=== PATIENT | female | born 1995 | race African-American/Black ===

== ENCOUNTER 2016-08-13 05:45 | Inpatient (IN) ==
[2016-08-13] MEDS ORDERED: FAMOTIDINE 20 MG/2 ML VIAL IV ONE (05:59)
[2016-08-13] MEDS ORDERED: CITRIC ACID/SODIUM CITRATE 30 ML UDCUP PO ONE (05:59)
[2016-08-13] MEDS: LACTATED RINGERS 1,000 ML IV SCH ×2 (06:30→22:16)
[2016-08-13 06:45] LABS: Basophils % 0.2 % (0.0-0.8); Eosinophils % 0.4 % (0.00-10.9); Hematocrit 31.6 VOL% (35.7-47.0); Immature Granulocytes % 0.4 %; Immature Granulocytes Absolute 0.04 #; Lymphocytes % 21.8 % (21.3-54.2); Mean Corpuscular HGB Conc 28.5 GM/DL (32-36); Mean Corpuscular Hemoglobin 18 PG (27-34); Mean Corpuscular Volume 62.3 FL (87-102); Monocytes # 0.4 10*3/uL (0.11-0.8); Monocytes % 4.2 % (1.7-12.7); Neutrophils # 6.6 10*3/uL (1.4-7.4); Platelet Count 374 T/CUMM (130-400); Red Blood Count 5.07 MC/CUMM (3.8-5.5); Red Cell Distribution Width 19.5 % (9.3-17.3)
[2016-08-13 06:54] LABS: INR 0.9; PT Patient Result 9.4 SECS; Partial Thromboplastin Time 31.7 SECS (0-40)
[2016-08-13] MEDS ORDERED: ceFAZolin 2,000 MG in PREMIX 1 EACH IV ONE (07:12)
[2016-08-13 07:15] LABS: Alanine Aminotransferase 77 U/L (13-56); Albumin 2.3 G/DL (3.4-5.0); Alkaline Phosphatase 323 U/L (45-117); Aspartate Amino Transferase 71 U/L (0-37); Bilirubin,Total < 0.39 MG/DL (0.2-1.0); Blood Urea Nitrogen 13 MG/DL (7-18); Calcium 8.4 MG/DL (8.5-10.1); Glucose 67 MG/DL (74-106); Osmolality,Calculated 272.7 MOS/KG (273-304); Potassium 3.8 MMOL/L (3.5-5.1); Sodium 138 MMOL/L (136-145); Total Protein 7.7 G/DL (6.4-8.3)
[2016-08-13 07:18] LABS: Hypochromasia 1+; Microcytosis 2+
[2016-08-13 07:19] LABS: Ovalocytes Slight; Platelet Estimate Normal
[2016-08-13] MEDS ORDERED: OXYTOCIN/LR 20 UNIT/1,000 ML BAG IV ONE ×2 (07:23→09:07)
[2016-08-13] MEDS ORDERED: ONDANSETRON 4 MG/2 ML VIAL ONE (07:45)
[2016-08-13] MEDS ORDERED: ACETAMINOPHEN 325 MG TABLET PO PRN (09:07)
--- NOTE | 2016-08-13 09:09 | Operative Note ---
Date of procedure: 08/13/16 Procedure Preformed: Following informed consent patient taken to the operating room where spinal anesthesia was administered without difficulty. She is prepped and draped in usual fashion placed in dorsal supine position with a leftward tilt. A Pfannenstiel skin incision made with scalpel and carried through to the underlying layer fascia with Bovie. The fascia with incision was excised midlines to lateral with Hobson scissors. The inferior and superior aspects of the fascial incision were grasped with Weld clamps, elevated and the rectus muscles dissected off bluntly. The rectus muscles were then midline and the peritoneum identified and entered with Metzenbaum scissors. The cyst extends purely inferiorly with good visualization of the bladder. Bladder blade was then reinserted and the uterus incised in transverse fashion with scalpel. It was head was atraumatically. The nose mouth bulb suctioned. Cord clamped cut and the handed off to waiting nurses. Cord blood was sent. The placenta was then removed manually and the uterus cleared all clots and debris. The uterine incision with #1 Vicryl in a running locked fashion. A second layer same suture was used to obtain hemostasis. The gutters and cleared of all clots and debris and once again hemostasis will be satisfactory. Therefore all instruments from the abdomen. The fascia was repaired with [0] Vicryl in a running fashion. Skin was closed with yohannes. A preventions wound VAC was applied due to patient's history of hidradenitis of vertebral with draining track sites adjacent to the incision site. At the end of the procedure all sponge lap needle counts correct 2. Baby and mother in stable condition. Surgeon / Physician: Sorin Aiken Post-op diagnosis: same Findings: Liveborn female infant Specimens: none sent Estimated blood loss: other (350 mL) Condition: stable Anesthesia: spinal Disposition: floor
--- NOTE | 2016-08-13 09:11 | OB/GYN History & Physical ---
History of Present Illness Chief complaint: Hypertension in History of present illness: Ms. Mcconnell is a 21 year old female Primigravida at 36 weeks gestation with history of gestational hypertension and hidradenitis suppurativa who was admitted for primary section. Patient 's blood pressures have been controlled via p.o. Procardia, however she was beginning to break through with once again elevated blood pressures that prompted the need for delivery once she reached 36 weeks gestation. Home Medications Medication Instructions Recorded Confirmed Type Ferrous Sulfate 325 mg PO TID MDD 650 MG 11/03/14 08/08/16 History Multivitamin () [ 1 tablet PO DAILY MDD ONE TAB 05/22/16 History Vitamin] Butalbital/Acet/Caff 50-325-40 1 tablet PO DIRECTED MDD 2 TABS 08/07/1608/08 History [Fioricet 50-325-40 mg Tablet] NIFEdipine CAP [Procardia] 10 mg PO Q4HR MDD 60 MG 08/08/16 08/08/16 History Allergies Allergy/AdvReac Type Severity Reaction Status Date / Time sulfamethoxazole Allergy RASH Verified 03/07/15 11:10 [From Bactrim] trimethoprim [From Bactrim] Allergy RASH Verified 03/07/15 11:10 12 point system: reviewed and no additional remarkable complaints except as stated Medical,Surgical,& Family Hx - Medical History Psychological: History of: Depression HEENT: History of: 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; wears Rx glasses) Endocrine: No history of: Diabetes Mellitus (IDDM) Rheumatology: No history of;: Psoriasis, Sjogrens, Systemic Lupus Erythematosus Genitourinary: History of: Recurring Urinary Tract Infections (accompanies abcesses) Musculoskeletal: History of: Musculoskeletal Problems (Left Arm DVT June 2015) No history of: Amputation Hematology: History of: Anemia (iron deficiency, chronic wounds, thalassemia), Clotting Problems (left arm DVT (June 2015)) No history of: Blood Transfusion Reaction Other: History of: MRSA (vaginal abscesses), Skin Problems (chronic abscesses; dx hidradenitis suppurativa), Miscellaneous Medical Problems (hidradenitis suppurativa) No history of: Anesthesia Reactions, Anaphylaxis, Cancer, Eczema, HIV, Malignant Hyperthermia - Surgical History Thoracic Surgeries: Patient denies;: Organ Transplant HEENT Surgeries: Patient denies: Eye Surgery, Tonsilectomy & Adenoidectomy Abdominal Surgeries: Patient denies: Abdominal Surgery Reproductive Surgeries: Surgical HX of;: Genitourinary Surgery (debridement to suprapubic area) Patient denies;: Gynecologic Surgery - Family History Family History: Reports;: Family Diabetes (Grandfather), Family Heart Disease ( Aunt), Family Hypertension (Aunt), Family Stroke (Grandfather) Denies;: Family Anesthesia Reaction, Family Cancer, Family Psychiatric Problems - Social History Smoking Status: Never smoker Frequency of Alcohol Use: None Type of Drug Use: None 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: Vital Signs Temp Pulse Resp BP 08/13/16 06:40 98.1 F 85 18 140/95 General appearance: no acute distress - Head Head exam: Present: normocephalic - ENT ENT exam: Present: normal exam - Neck Neck exam: Present: normal inspection - Respiratory Respiratory exam: Present: clear to auscultation bilaterally - Cardiovascular Cardiovascular exam: Present: regular rate and rhythm - GI/Abdominal GI/Abdominal exam: Present: normal bowel sounds, soft - Extremities Exam Extremities exam: Present: normal inspection - Back Exam Back exam: Present: normal inspection - Neurological Exam Neurological exam: Present: alert, oriented X3 - Psychiatric Psychiatric exam: Present: normal affect, normal mood - Skin Skin exam: Present: normal color, warm, other (Hidradenitis suppurativa) Assessment and Plan (1) 36 weeks gestation of Status: Acute Current Visit: Yes (2) Gestational hypertension Status: Acute Assessment and plan: Patient admitted for primary section. Risks and benefits and alternatives to procedure were reviewed. Current Visit: Yes (3) Hidradenitis Status: Acute Current Visit: Yes Results - Labs CBC & BMP: 08/13/16 06:33 08/13/16 06:33 Quality Measures - VTE Contraindication to Pharmacological VTE Prophylaxis: High Risk of Bleeding
--- NOTE | 2016-08-13 09:13 | Discharge Summary ---
Hospital Course - Hospital Course Hospital Course: This is a 21-year-old primigravida admitted at 36 weeks gestation for section secondary to gestational hypertension. Patient with chronic hidradenitis of vertebral with significant fistula tracts and drainage from the genital area prompting for section versus vaginal delivery. Hospital course was unremarkable postoperative day #3 she was ready for discharge. Patient still has a disposable wound VAC in place that will be removed later this week in the office. Diagnosis - Discharge Diagnosis (1) 36 weeks gestation of Status: Acute (2) Gestational hypertension Status: Acute (3) Hidradenitis Status: Acute Specialty Discharge - Follow Up or Referrals Follow up with: Sorin Aiken MD [Primary Care Provider] - 08/23/16 9:00 am (Call 's office Tuesday and schedule a 1 week follow up appointment) Discharge Plan - Discharge Data Disposition: Disch To Home/Self Care Condition at Discharge: Stable Discharge Diet: advance to your usual diet Activity: no lifting Hygiene: may shower Weight Bearing at Discharge: weight bear as tolerated Driving: not until seen by doctor Contact your physician if you experience:: fever over 101, Difficulty voiding, Redness or swelling, Nausea/Vomiting, Shortness of breath, Bleeding, pain uncontrolled by pain medications - Discharge Medications New HYDROcodone/ACETAMIN 5-325 [Mather 5-325] 2 tablet PO Q6H PRN #60 tablet PRN Reason: Pain Severe (8-10) Labetalol Tab [Trandate Tab] 200 mg PO BID #60 tablet No Action Ferrous Sulfate 325 mg PO TID MDD 650 MG Multivitamin () [ Vitamin] 1 tablet PO DAILY MDD ONE TAB Butalbital/Acet/Caff 50-325-40 [Fioricet 50-325-40 mg Tablet] 1 tablet PO DIRECTED MDD 2 TABS NIFEdipine CAP [Procardia] 10 mg PO Q4HR MDD 60 MG - Follow Up or Referral Follow Up: Sorin Aiken MD [Primary Care Provider] - 1 Week (Call 's office Tuesday and schedule a 1 week follow up appointment) - Forms/Instructions Instructions: Section (DC), Depression (GEN), Acute Wound Care (DC), Surgical Site Infections (GEN) Exam - Constitutional Vitals: Period Temp Pulse Resp BP Sys/Oneil Pulse Ox Last 24 Hr 98.1 F 85 18 140/95 General appearance: no acute distress - Head Head exam: Present: normocephalic - ENT ENT exam: Present: normal exam - Neck Neck exam: Present: normal inspection - Respiratory Respiratory exam: Present: clear to auscultation bilaterally - Cardiovascular Cardiovascular exam: Present: regular rate and rhythm - GI/Abdominal GI/Abdominal exam: Present: normal bowel sounds, soft, other (Incision clean dry and intact. Wound VAC in place) - Extremities Exam Extremities exam: Present: normal inspection - Back Exam Back exam: Present: normal inspection - Neurological Exam Neurological exam: Present: alert, oriented X3 - Psychiatric Psychiatric exam: Present: normal affect, normal mood - Skin Skin exam: Present: normal color, warm, other (Hidradenitis suppurativa to the genital region) Discharge Results Procedures and tests throughout hospitalization: Pending Orders 08/13/16 06:00 Urinalysis Routine Labs on day of discharge: Labs from last 24 hours 08/13/16 08/13/16 08/13/16 06:33 06:33 06:33 WBC RBC Hgb Hct MCV MCH MCHC RDW Plt Count Neut % (Auto) Lymph % (Auto) [place] % (Auto) Eos % (Auto) Baso % (Auto) Neut # (Auto) Lymph # (Auto) [place] # (Auto) Eos # (Auto) Baso # (Auto) Immature Gran % Nucleated RBC % Immature Gran # Nucleated RBCs # Platelet Estimate Hypochromasia Microcytosis Ovalocytes Morphology Comment INR PT Patient/Control Mix Fibrinogen 881 H Circ Anticoag PTT Sodium Potassium Chloride Carbon Dioxide Anion Gap BUN Creatinine GFR Calculation BUN/Creatinine Ratio Glucose Calculated Osmolality Uric Acid 7.2 H Calcium Total Bilirubin AST ALT Alkaline Phosphatase Total Protein Albumin Globulin Albumin/Globulin Ratio Blood Type O POSITIVE Antibody Screen Negative 08/13/16 08/13/16 08/13/16 06:33 06:33 06:33 WBC 9.0 RBC 5.07 Hgb 9.0 L Hct 31.6 L MCV 62.3 L MCH 18 L MCHC 28.5 L RDW 19.5 H Plt Count 374 Neut % (Auto) 73.0 Lymph % (Auto) 21.8 [place] % (Auto) 4.2 Eos % (Auto) 0.4 Baso % (Auto) 0.2 Neut # (Auto) 6.6 Lymph # (Auto) 2.0 [place] # (Auto) 0.4 Eos # (Auto) 0.0 Baso # (Auto) 0.0 Immature Gran % 0.4 Nucleated RBC % 0.0 Immature Gran # 0.04 Nucleated RBCs # 0.00 Platelet Estimate Normal Hypochromasia 1+ Microcytosis 2+ Ovalocytes Slight Morphology Comment INR 0.9 PT Patient/Control Mix 9.4 Fibrinogen Circ Anticoag PTT 31.7 Sodium 138 Potassium 3.8 Chloride 109 H Carbon Dioxide 16 L Anion Gap 16.8 H BUN 13 Creatinine 0.70 GFR Calculation 158 BUN/Creatinine Ratio 18.00 Glucose 67 L Calculated Osmolality 272.7 L Uric Acid Calcium 8.4 L Total Bilirubin < 0.39 AST 71 H ALT 77 H Alkaline Phosphatase 323 H Total Protein 7.7 Albumin 2.3 L Globulin 5.4 H Albumin/Globulin Ratio 0.4 L Blood Type Antibody Screen DS: Provider Date of admission: 08/13/16 05:59 Primary care physician: Sorin Aiken MD Attending physician on admission: Sorin Aiken MD Consults: 08/13/16 06:00 Consult to Anesthesiology [CONS] Routine Consulting Provider: Reason for Anesthesiology: Pre-op Clearance 08/13/16 06:47 Consult to Dietitian [CONS] Routine Reason for Dietitian: Diet Recommendations 08/13/16 09:07 Consult to Pathology Collector [CONS] Routine Consult Pathology Collector: Breast Feeding Discharging clinician: Sorin Aiken MD
[2016-08-13] MEDS ORDERED: MIDAZOLAM 2 MG/2 ML VIAL ONE (09:22)
[2016-08-13] MEDS ORDERED: fentaNYL 100 MCG/2 ML VIAL ONE (09:22)
[2016-08-13] MEDS ORDERED: MORPHINE 10 MG/10 ML VIAL ONE (09:23)
[2016-08-13] MEDS ORDERED: LACTATED RINGERS 1,000 ML IV SCH (09:30)
[2016-08-13 09:49] LABS: Apearance,Urine CLEAR (Clear); Bilirubin,Urine Negative (Negative); Blood, Urine Small mg/dL (Negative); Glucose,Urine (UA) Negative (Negative); Ketones,Urine Negative (Negative); Nitrite,Urine Negative (Negative); Protein,Urine Negative; RBC,Urine 1 /HPF (0-4); Squamous Epithelial Cell,Urine Occasional /HPF (0-10); Urine Color Yellow (Yellow); Urine Specific Gravity 1.005 (1.001-1.035); Urine Urobilinogen < 2.0 EU/DL (0.2-1.0); WBC,Urine 1 /HPF (0-6)
[2016-08-13] MEDS ORDERED: RHO(D) IMMUNE GLOBULIN 300 MCG SYRINGE IM ONE (10:00)
[2016-08-13] MEDS ORDERED: diphenhydrAMINE 50 MG/1 ML VIAL IV PRN (10:19)
[2016-08-13] MEDS ORDERED: hydrOXYzine HCL 25 MG/1 ML VIAL IM PRN (10:19)
[2016-08-13] MEDS: ONDANSETRON 4 MG/2 ML VIAL IV PRN ×3 (10:40→21:23)
[2016-08-13] MEDS: HYDROmorphone 2 MG/1 ML VIAL IV PRN ×3 (10:40→16:45)
--- NOTE | 2016-08-13 10:46 | Anesthesia Post-Op ---
Anesthesia Post OP - Post Ansesthetic Evaluation Patient seen in post op: Yes Resp: within normal limits CV: within normal limits Mental: within normal limits Temp: within normal limits [id number]: within normal limits Nausea and Vomiting: within normal limits Pain: within normal limits
[2016-08-13 16:13] LABS: Basophils % 0.3 % (0.0-0.8); Eosinophils # 0.1 10*3/uL (0.0-0.87); Eosinophils % 0.5 % (0.00-10.9); Hematocrit 26.5 VOL% (35.7-47.0); Hemoglobin 7.6 GM/DL (12.0-16.0); Immature Granulocytes % 0.4 %; Immature Granulocytes Absolute 0.04 #; Lymphocytes # 1.7 10*3/uL (1.4-4.0); Lymphocytes % 15.5 % (21.3-54.2); Mean Corpuscular HGB Conc 28.7 GM/DL (32-36); Mean Corpuscular Hemoglobin 18 PG (27-34); Mean Corpuscular Volume 62.4 FL (87-102); Mean Platelet Volume 11.2 FL (9.6-12.0); Monocytes # 0.5 10*3/uL (0.11-0.8); Monocytes % 4.5 % (1.7-12.7); Neutrophils # 8.7 10*3/uL (1.4-7.4); Neutrophils % 78.8 % (38.7-73.9); Platelet Count 273 T/CUMM (130-400); Red Blood Count 4.25 MC/CUMM (3.8-5.5)
[2016-08-13 20:18] LABS: Platelet Estimate Normal
[2016-08-13 20:19] LABS: Hypochromasia 2+; Microcytosis 3+; Poikilocytosis 1+; Tear Drop Cells Few
[2016-08-13 20:20] LABS: Burr Cells Few
[2016-08-13] MEDS: DOCUSATE SODIUM 100 MG CAPSULE PO SCH (21:02)
[2016-08-13] MEDS: IBUPROFEN 800 MG TABLET PO PRN (21:18)
[2016-08-14] MEDS: IBUPROFEN 800 MG TABLET PO PRN ×2 (05:13→17:59)
[2016-08-14 05:25] LABS: Basophils % 0.2 % (0.0-0.8); Eosinophils # 0.1 10*3/uL (0.0-0.87); Eosinophils % 1.3 % (0.00-10.9); Hematocrit 23.8 VOL% (35.7-47.0); Hemoglobin 6.7 GM/DL (12.0-16.0); Immature Granulocytes % 0.5 %; Immature Granulocytes Absolute 0.04 #; Lymphocytes # 1.2 10*3/uL (1.4-4.0); Lymphocytes % 14.7 % (21.3-54.2); Mean Corpuscular HGB Conc 28.2 GM/DL (32-36); Mean Corpuscular Hemoglobin 17 PG (27-34); Mean Corpuscular Volume 61.7 FL (87-102); Mean Platelet Volume 11.2 FL (9.6-12.0); Monocytes # 0.5 10*3/uL (0.11-0.8); Monocytes % 5.4 % (1.7-12.7); Neutrophils # 6.5 10*3/uL (1.4-7.4); Neutrophils % 77.9 % (38.7-73.9); Platelet Count 254 T/CUMM (130-400); Red Blood Count 3.86 MC/CUMM (3.8-5.5); Red Cell Distribution Width 18.8 % (9.3-17.3); White Blood Count 8.3 T/CUMM (4-12)
[2016-08-14] MEDS ORDERED: SODIUM CHLORIDE 0.9% 250 ML IV PRN (07:30)
[2016-08-14 08:04] LABS: Hypochromasia 2+
[2016-08-14 08:05] LABS: Giant Platelets Few; Microcytosis 1+
[2016-08-14] MEDS: MULTIVITAMIN (PRENATAL) TABLET PO SCH (08:23)
[2016-08-14] MEDS: DOCUSATE SODIUM 100 MG CAPSULE PO SCH ×2 (08:23→20:55)
[2016-08-14] MEDS: SIMETHICONE CHEW 80 MG TABLET PO PRN ×3 (08:24→20:55)
[2016-08-14] MEDS: MAGNESIUM HYDROXIDE SUSP 30 ML UDCUP PO PRN ×2 (08:24→20:55)
--- NOTE | 2016-08-14 12:19 | OB/GYN Progress Note ---
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 She has a significant hx of hidradenitis suppurativa with draining tract sites near incision site so wound vac was placed to aid healing. Her H/H had dropped somewhat after delivery so 2 units pRBCs given (instead of observation and medical management) to hopefully encourage better healing of her wound. Pt with discomfort as expected. She is hemodynamically stable. Exam INSPECTOR OPEN DIE - Constitutional Vitals: Vital Signs Temp Pulse Pulse Resp BP BP Pulse Ox 08/14/16 12:05 97.9 F 81 18 98 08/14/16 10:42 98.2 F 78 20 126/70 99 08/14/16 10:37 98.2 F 80 20 129/76 08/14/16 10:29 98.1 F 79 20 157/74 97 08/14/16 10:23 98.2 F 82 20 154/52 96 08/14/16 10:20 98.2 F 82 20 154/82 96 08/14/16 09:41 97.8 F 80 20 150/84 98 08/14/16 08:47 20 08/14/16 08:41 98.4 F 87 20 158/81 97 08/14/16 08:11 97.8 F 72 20 169/89 08/14/16 08:06 97.5 F L 72 20 169/77 08/14/16 08:01 97.6 F 79 20 134/74 99 08/14/16 08:00 20 08/14/16 07:45 97.2 F L 89 20 109/65 99 08/14/16 07:09 97.2 F L 65 18 135/80 08/14/16 03:55 97.5 F L 77 18 147/76 08/14/16 01:48 18 08/14/16 00:00 97.6 F 70 18 137/69 08/13/16 20:48 98.1 F 80 18 115/68 08/13/16 18:00 18 08/13/16 16:00 18 08/13/16 15:15 75 20 129/85 08/13/16 14:15 75 20 145/74 08/13/16 14:00 18 08/13/16 13:15 72 20 154/83 08/13/16 12:45 72 20 154/83 Pulse Ox 08/14/16 12:05 08/14/16 10:42 08/14/16 10:37 08/14/16 10:29 08/14/16 10:23 08/14/16 10:20 08/14/16 09:41 08/14/16 08:47 08/14/16 08:41 08/14/16 08:11 08/14/16 08:06 08/14/16 08:01 08/14/16 08:00 08/14/16 07:45 08/14/16 07:09 97 08/14/16 03:55 97 08/14/16 01:48 08/14/16 00:00 97 08/13/16 20:48 97 08/13/16 18:00 08/13/16 16:00 08/13/16 15:15 99 08/13/16 14:15 99 08/13/16 14:00 08/13/16 13:15 99 08/13/16 12:45 99 General appearance: normal weight, no acute distress - Head Head exam: Present: normal inspection, normocephalic - Eye Eye exam: Present: EOMI - Respiratory Respiratory exam: Present: clear to auscultation bilaterally - Cardiovascular Cardiovascular exam: Present: regular rate and rhythm - GI/Abdominal GI/Abdominal exam: Present: soft (wound vac in place. ) - Extremities Exam Extremities exam: Present: normal inspection - Neurological Exam Neurological exam: Present: alert, oriented X3 - Psychiatric Psychiatric exam: Present: normal affect, normal mood - Skin Skin exam: Present: normal color, warm Results - Labs CBC & BMP: 08/14/16 04:32 08/13/16 06:33 Lab Results: I have reviewed the past 24 hour labs
[2016-08-14] MEDS: oxyCODONE/ACETAMINOPHEN 5-325 MG TABLET PO PRN ×2 (15:00→20:55)
[2016-08-14] MEDS: ENOXAPARIN 40 MG/0.4 ML SYRINGE SUBCUT SCH (17:38)
[2016-08-14] MEDS ORDERED: WITCH HAZEL PADS 100/JAR TOP PRN (18:35)
[2016-08-14] MEDS ORDERED: HYDROCORTISONE 2.5% RECTAL CREAM 30 GM TUBE TOP PRN (18:36)
[2016-08-15] MEDS: oxyCODONE/ACETAMINOPHEN 5-325 MG TABLET PO PRN ×6 (01:00→21:02)
[2016-08-15] MEDS: IBUPROFEN 800 MG TABLET PO PRN (02:07)
[2016-08-15 05:24] LABS: Basophils % 0.2 % (0.0-0.8); Eosinophils # 0.2 10*3/uL (0.0-0.87); Eosinophils % 1.5 % (0.00-10.9); Hematocrit 29.5 VOL% (35.7-47.0); Immature Granulocytes % 0.4 %; Immature Granulocytes Absolute 0.04 #; Lymphocytes % 9.1 % (21.3-54.2); Mean Corpuscular HGB Conc 30.5 GM/DL (32-36); Mean Corpuscular Hemoglobin 20 PG (27-34); Mean Corpuscular Volume 65.3 FL (87-102); Monocytes # 0.5 10*3/uL (0.11-0.8); Monocytes % 4.5 % (1.7-12.7); Neutrophils # 9.1 10*3/uL (1.4-7.4); Neutrophils % 84.3 % (38.7-73.9); Platelet Count 266 T/CUMM (130-400); Red Blood Count 4.52 MC/CUMM (3.8-5.5); Red Cell Distribution Width 22.9 % (9.3-17.3); White Blood Count 10.8 T/CUMM (4-12)
[2016-08-15 07:41] LABS: Hypochromasia 2+; Microcytosis 1+; Platelet Estimate Adequate; Target Cells Slight
[2016-08-15] MEDS: FERROUS SULFATE 325 MG TABLET PO SCH ×2 (08:22→20:22)
[2016-08-15] MEDS: DOCUSATE SODIUM 100 MG CAPSULE PO SCH ×2 (08:22→20:23)
[2016-08-15] MEDS: LABETALOL 200 MG TABLET PO SCH ×2 (08:28→20:23)
[2016-08-15] MEDS: MULTIVITAMIN (PRENATAL) TABLET PO SCH (08:28)
[2016-08-15] MEDS: MAGNESIUM HYDROXIDE SUSP 30 ML UDCUP PO PRN (08:28)
[2016-08-15] MEDS: SIMETHICONE CHEW 80 MG TABLET PO PRN (08:29)
--- NOTE | 2016-08-15 11:57 | OB/GYN Progress Note ---
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 Now s/p transfusion of 2 units pRBCs, Labetolol 200mg bid started this morning with elevated BPs. Complains of gas pains but has had a BM. Wound vac functioning well. 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 - Constitutional Vitals: Vital Signs Temp Pulse Pulse Resp BP Pulse Ox Pulse Ox 08/15/16 11:51 97.7 F 78 18 156/77 98 08/15/16 10:00 20 08/15/16 07:55 997.6 F H 69 18 179/90 99 08/15/16 07:50 18 08/15/16 04:00 97.4 F L 76 18 149/79 100 08/14/16 23:55 97.7 F 89 20 139/94 100 08/14/16 19:45 97.6 F 79 20 154/84 97 08/14/16 16:38 18 08/14/16 16:00 98.4 F 77 18 155/74 97 08/14/16 14:00 18 08/14/16 12:12 97.8 F 77 20 98 08/14/16 12:05 97.9 F 81 18 98 08/14/16 12:00 97.9 F 81 18 160/76 98 General appearance: normal weight, no acute distress - Head Head exam: Present: normal inspection, normocephalic - Eye Eye exam: Present: EOMI - Respiratory Respiratory exam: Present: clear to auscultation bilaterally - Cardiovascular Cardiovascular exam: Present: regular rate and rhythm - GI/Abdominal GI/Abdominal exam: Present: soft - Neurological Exam Neurological exam: Present: alert, oriented X3 - Psychiatric Psychiatric exam: Present: normal affect, normal mood - Skin Skin exam: Present: normal color, warm Results - Labs CBC & BMP: 08/15/16 04:17 08/13/16 06:33 Lab Results: I have reviewed the past 24 hour labs
[2016-08-15] MEDS: ENOXAPARIN 40 MG/0.4 ML SYRINGE SUBCUT SCH (17:00)
[2016-08-16] MEDS: SIMETHICONE CHEW 80 MG TABLET PO PRN (00:07)
[2016-08-16] MEDS: oxyCODONE/ACETAMINOPHEN 5-325 MG TABLET PO PRN ×3 (01:19→09:24)
[2016-08-16] MEDS: IBUPROFEN 800 MG TABLET PO PRN (02:20)
[2016-08-16] MEDS: DOCUSATE SODIUM 100 MG CAPSULE PO SCH (09:24)
[2016-08-16] MEDS: FERROUS SULFATE 325 MG TABLET PO SCH (09:24)
[2016-08-16] MEDS: LABETALOL 200 MG TABLET PO SCH (09:24)
[2016-08-16] MEDS: MULTIVITAMIN (PRENATAL) TABLET PO SCH (09:24)
[2016-08-16 09:34] VITALS: BP 138/79
== END 2016-08-16 12:45 | disposition home or self-care (01) | DRG 766 ==
LOC: N.LDOUT 05:45 → N.LD 05:47 → N.OB 12:15
PROVIDERS: ADMIT Obstetrics & Gynecology; ATTEND Obstetrics & Gynecology
PROC: LDCSECT (ICD-10-PCS; 2016-08-13 07:30)

== ENCOUNTER 2017-09-12 14:23 | Inpatient (IN) ==
[2017-09-12 16:11] LABS: Basophils # 0.1 10*3/uL (0.0-0.2); Basophils % 0.4 % (0.0-0.8); Eosinophils # 0.5 10*3/uL (0.0-0.87); Eosinophils % 3.4 % (0.00-10.9); Hemoglobin 8.7 GM/DL (12.0-16.0); Immature Granulocytes % 0.4 %; Immature Granulocytes Absolute 0.06 #; Lymphocytes # 1.8 10*3/uL (1.4-4.0); Lymphocytes % 12.9 % (21.3-54.2); Mean Corpuscular Hemoglobin 19 PG (27-34); Mean Corpuscular Volume 63.2 FL (87-102); Mean Platelet Volume 10.6 FL (9.6-12.0); Monocytes # 0.6 10*3/uL (0.11-0.8); Monocytes % 4.4 % (1.7-12.7); Neutrophils % 78.5 % (38.7-73.9); Platelet Count 516 T/CUMM (130-400); Red Blood Count 4.59 MC/CUMM (3.8-5.5); Red Cell Distribution Width 18.8 % (9.3-17.3)
[2017-09-12 16:49] LABS: Alanine Aminotransferase 18 U/L (13-56); Albumin 2.9 G/DL (3.4-5.0); Alkaline Phosphatase 96 U/L (45-117); Aspartate Amino Transferase 14 U/L (0-37); Bilirubin,Total < 0.39 MG/DL (0.2-1.0); Blood Urea Nitrogen 7 MG/DL (7-18); Calcium 8.9 MG/DL (8.5-10.1); Glucose 98 MG/DL (74-106); Osmolality,Calculated 267.1 MOS/KG (273-304); Potassium 3.7 MMOL/L (3.5-5.1); Sodium 135 MMOL/L (136-145); Total Protein 8.9 G/DL (6.4-8.3)
[2017-09-12] MEDS ORDERED: CLINDAMYCIN INJ 900 MG in PREMIX 1 EACH IV STA (17:03)
[2017-09-12] MEDS ORDERED: SODIUM CHLORIDE 0.9% 2,900 ML IV ONE (17:07)
[2017-09-12] MEDS ORDERED: ONDANSETRON 4 MG/2 ML VIAL IV PRN (17:14)
[2017-09-12] MEDS ORDERED: MORPHINE 4 MG/1 ML VIAL ONE ×2 (17:26→17:28)
[2017-09-12] MEDS ORDERED: ONDANSETRON 4 MG/2 ML VIAL ONE (17:28)
[2017-09-12] MEDS ORDERED: PIPERACILLIN/TAZOBACTAM 3,375 MG in SODIUM CHLORIDE 0.9% 100 ML IV SCH (17:30)
[2017-09-12 17:31] LABS: % Iron Saturation 4.2 % (18-50)
[2017-09-12] MEDS: MORPHINE 4 MG/1 ML VIAL IV PRN ×2 (17:35→22:25)
[2017-09-12] MEDS ORDERED: CLINDAMYCIN INJ 50 ML IV ONE (17:45)
[2017-09-12] MEDS: SODIUM CHLORIDE 0.9% 1,000 ML IV SCH ×2 (20:18→22:26)
[2017-09-12] MEDS: MEROPENEM 500 MG in SYRINGE 1 EACH IV SCH (22:20)
[2017-09-12] MEDS: VANCOMYCIN INJ 1,500 MG in SODIUM CHLORIDE 0.9% 500 ML IV SCH (22:26)
[2017-09-13] MEDS: SODIUM CHLORIDE 0.9% 1,000 ML IV SCH ×3 (01:37→21:29)
[2017-09-13] MEDS: MEROPENEM 500 MG in SYRINGE 1 EACH IV SCH ×3 (05:10→23:03)
[2017-09-13 05:16] LABS: Basophils # 0.1 10*3/uL (0.0-0.2); Basophils % 0.5 % (0.0-0.8); Eosinophils # 0.5 10*3/uL (0.0-0.87); Eosinophils % 4.9 % (0.00-10.9); Hematocrit 24.4 VOL% (35.7-47.0); Hemoglobin 7.2 GM/DL (12.0-16.0); Immature Granulocytes % 0.4 %; Immature Granulocytes Absolute 0.04 #; Lymphocytes # 1.9 10*3/uL (1.4-4.0); Lymphocytes % 17.2 % (21.3-54.2); Mean Corpuscular HGB Conc 29.5 GM/DL (32-36); Mean Corpuscular Hemoglobin 19 PG (27-34); Mean Corpuscular Volume 63.9 FL (87-102); Mean Platelet Volume 10.9 FL (9.6-12.0); Monocytes # 0.6 10*3/uL (0.11-0.8); Monocytes % 5.4 % (1.7-12.7); Neutrophils # 7.7 10*3/uL (1.4-7.4); Neutrophils % 71.6 % (38.7-73.9); Platelet Count 456 T/CUMM (130-400); Red Blood Count 3.82 MC/CUMM (3.8-5.5); Red Cell Distribution Width 18.8 % (9.3-17.3); White Blood Count 10.8 T/CUMM (4-12)
[2017-09-13] MEDS: MORPHINE 4 MG/1 ML VIAL IV PRN ×4 (05:50→23:03)
[2017-09-13 05:55] LABS: Albumin 2.6 G/DL (3.4-5.0); Bilirubin,Total 0.6 MG/DL (0.2-1.0); Calcium 7.9 MG/DL (8.5-10.1); Osmolality,Calculated 272.5 MOS/KG (273-304); Potassium 3.9 MMOL/L (3.5-5.1); Total Protein 7.3 G/DL (6.4-8.3)
[2017-09-13] MEDS ORDERED: SODIUM CHLORIDE 0.9% 1,000 ML IV PRN (07:03)
[2017-09-13 07:59] LABS: % Iron Saturation 4.4 % (18-50)
[2017-09-13 08:15] LABS: Folate 7.2 NG/ML (5.4-24.0); Vitamin B12 327 PG/ML (211-911)
[2017-09-13] MEDS: PANTOPRAZOLE 40 MG TABLET PO SCH (08:56)
[2017-09-13] MEDS: VANCOMYCIN INJ 1,500 MG in SODIUM CHLORIDE 0.9% 500 ML IV SCH ×2 (08:56→21:26)
[2017-09-13] MEDS: FOLIC ACID 1 MG TABLET PO SCH (08:56)
[2017-09-13] MEDS: ENOXAPARIN 40 MG/0.4 ML SYRINGE SUBCUT SCH ×3 (08:57→18:42)
[2017-09-13 20:14] LABS: Hemoglobin 9.5 GM/DL (12.0-16.0)
[2017-09-14] MEDS: MORPHINE 4 MG/1 ML VIAL IV PRN ×4 (06:01→22:05)
[2017-09-14] MEDS: MEROPENEM 500 MG in SYRINGE 1 EACH IV SCH ×3 (06:03→23:54)
[2017-09-14] MEDS: SODIUM CHLORIDE 0.9% 1,000 ML IV SCH ×3 (06:08→15:26)
[2017-09-14 06:31] LABS: Basophils # 0.1 10*3/uL (0.0-0.2); Basophils % 0.6 % (0.0-0.8); Eosinophils # 0.7 10*3/uL (0.0-0.87); Eosinophils % 6.3 % (0.00-10.9); Hematocrit 31.2 VOL% (35.7-47.0); Hemoglobin 9.5 GM/DL (12.0-16.0); Immature Granulocytes % 0.4 %; Immature Granulocytes Absolute 0.04 #; Lymphocytes # 1.7 10*3/uL (1.4-4.0); Lymphocytes % 15.9 % (21.3-54.2); Mean Corpuscular HGB Conc 30.4 GM/DL (32-36); Mean Corpuscular Hemoglobin 20 PG (27-34); Mean Corpuscular Volume 66.4 FL (87-102); Mean Platelet Volume 10.3 FL (9.6-12.0); Monocytes # 0.5 10*3/uL (0.11-0.8); Monocytes % 4.5 % (1.7-12.7); Neutrophils # 7.9 10*3/uL (1.4-7.4); Neutrophils % 72.3 % (38.7-73.9); Platelet Count 432 T/CUMM (130-400); Red Cell Distribution Width 21.3 % (9.3-17.3); White Blood Count 10.9 T/CUMM (4-12)
[2017-09-14 06:42] LABS: Albumin 2.6 G/DL (3.4-5.0); Bilirubin,Total 0.7 MG/DL (0.2-1.0); Calcium 8.3 MG/DL (8.5-10.1); Osmolality,Calculated 273.5 MOS/KG (273-304); Potassium 3.8 MMOL/L (3.5-5.1); Total Protein 7.7 G/DL (6.4-8.3)
[2017-09-14] MEDS: FERROUS SULFATE 325 MG TABLET PO SCH ×3 (09:17→22:03)
[2017-09-14] MEDS: VANCOMYCIN INJ 1,500 MG in SODIUM CHLORIDE 0.9% 500 ML IV SCH ×2 (09:17→22:03)
[2017-09-14] MEDS: FOLIC ACID 1 MG TABLET PO SCH (09:17)
[2017-09-14] MEDS: PANTOPRAZOLE 40 MG TABLET PO SCH (09:17)
[2017-09-14] MEDS: ENOXAPARIN 40 MG/0.4 ML SYRINGE SUBCUT SCH ×2 (09:19→19:30)
[2017-09-14 10:07] LABS: Hemoglobin A1 (Alkaline) 98.2 % (96.5-98.5); Hemoglobin A2 (Alkaline) 1.8 % (1.5-3.5)
[2017-09-15] MEDS: MORPHINE 4 MG/1 ML VIAL IV PRN ×2 (03:28→09:40)
[2017-09-15] MEDS: SODIUM CHLORIDE 0.9% 1,000 ML IV SCH ×2 (03:31→08:56)
[2017-09-15] MEDS ORDERED: VANCOMYCIN INJ 1,500 MG in SODIUM CHLORIDE 0.9% 500 ML IV SCH (06:00)
[2017-09-15] MEDS: MEROPENEM 500 MG in SYRINGE 1 EACH IV SCH (06:37)
[2017-09-15 07:38] VITALS: BP 107/76
[2017-09-15] MEDS: ENOXAPARIN 40 MG/0.4 ML SYRINGE SUBCUT SCH (08:56)
[2017-09-15] MEDS: FOLIC ACID 1 MG TABLET PO SCH (09:39)
[2017-09-15] MEDS: FERROUS SULFATE 325 MG TABLET PO SCH (09:39)
[2017-09-15] MEDS: PANTOPRAZOLE 40 MG TABLET PO SCH (09:39)
== END 2017-09-15 11:52 | disposition home or self-care (01) | DRG 607 ==
LOC: N.ED 14:23 → N.EDINP 17:22 → SUATTDRO 17:22 → N.3E 19:33
PROVIDERS: ADMIT Internal Medicine Nephrology; ATTEND Internal Medicine

== ENCOUNTER 2018-03-18 17:47 | Inpatient (IN) ==
[2018-03-18 20:15] LABS: Basophils # 0.1 10*3/uL (0.0-0.2); Basophils % 0.4 % (0.0-0.8); Eosinophils # 0.5 10*3/uL (0.0-0.87); Eosinophils % 4.7 % (0.00-10.9); Hematocrit 31.3 VOL% (35.7-47.0); Hemoglobin 9.1 GM/DL (12.0-16.0); Immature Granulocytes % 0.4 %; Immature Granulocytes Absolute 0.05 #; Lymphocytes # 1.6 10*3/uL (1.4-4.0); Lymphocytes % 14.3 % (21.3-54.2); Mean Corpuscular HGB Conc 29.1 GM/DL (32-36); Mean Corpuscular Hemoglobin 20 PG (27-34); Mean Platelet Volume 10.7 FL (9.6-12.0); Monocytes # 0.5 10*3/uL (0.11-0.8); Monocytes % 4.4 % (1.7-12.7); Neutrophils # 8.5 10*3/uL (1.4-7.4); Neutrophils % 75.8 % (38.7-73.9); Platelet Count 427 T/CUMM (130-400); Red Blood Count 4.47 MC/CUMM (3.8-5.5); Red Cell Distribution Width 18.7 % (9.3-17.3); White Blood Count 11.2 T/CUMM (4-12)
[2018-03-18 20:38] LABS: Calcium 8.6 MG/DL (8.5-10.1); Osmolality,Calculated 273.7 MOS/KG (273-304); Potassium 3.5 MMOL/L (3.5-5.1)
[2018-03-18] MEDS ORDERED: PROMETHAZINE 25 MG/1 ML VIAL IM PRN (22:42)
[2018-03-18] MEDS ORDERED: diphenhydrAMINE CAP 25 MG CAPSULE PO PRN (22:42)
[2018-03-18] MEDS ORDERED: ONDANSETRON 4 MG/2 ML VIAL IV PRN (22:42)
[2018-03-18] MEDS ORDERED: NICOTINE 21 MG/24 HR PATCH TRANSDERM PRN (22:42)
[2018-03-18] MEDS ORDERED: ACETAMINOPHEN 325 MG TABLET PO PRN (22:42)
[2018-03-19] MEDS: MORPHINE 4 MG/1 ML VIAL IV PRN ×5 (01:01→23:41)
[2018-03-19] MEDS: SODIUM CHLORIDE 0.9% 1,000 ML IV SCH ×4 (01:02→17:36)
[2018-03-19] MEDS: PIPERACILLIN/TAZOBACTAM 3,375 MG in SODIUM CHLORIDE 0.9% 100 ML IV SCH ×4 (01:02→23:36)
[2018-03-19] MEDS: VANCOMYCIN INJ 1,500 MG in SODIUM CHLORIDE 0.9% 500 ML IV SCH ×2 (02:06→13:39)
[2018-03-19 05:43] LABS: Basophils % 0.4 % (0.0-0.8); Eosinophils # 0.5 10*3/uL (0.0-0.87); Eosinophils % 4.8 % (0.00-10.9); Hematocrit 29.4 VOL% (35.7-47.0); Hemoglobin 8.5 GM/DL (12.0-16.0); Immature Granulocytes % 0.5 %; Immature Granulocytes Absolute 0.05 #; Lymphocytes % 20.3 % (21.3-54.2); Mean Corpuscular HGB Conc 28.9 GM/DL (32-36); Mean Corpuscular Hemoglobin 20 PG (27-34); Mean Corpuscular Volume 70.5 FL (87-102); Mean Platelet Volume 10.8 FL (9.6-12.0); Monocytes # 0.6 10*3/uL (0.11-0.8); Monocytes % 6.5 % (1.7-12.7); Neutrophils # 6.6 10*3/uL (1.4-7.4); Neutrophils % 67.5 % (38.7-73.9); Platelet Count 385 T/CUMM (130-400); Red Blood Count 4.17 MC/CUMM (3.8-5.5); Red Cell Distribution Width 18.6 % (9.3-17.3); White Blood Count 9.8 T/CUMM (4-12)
[2018-03-19 06:07] LABS: Osmolality,Calculated 273.5 MOS/KG (273-304); Potassium 3.4 MMOL/L (3.5-5.1)
[2018-03-19] MEDS: LABETALOL 200 MG TABLET PO SCH ×2 (10:59→21:16)
[2018-03-19] MEDS: PANTOPRAZOLE 40 MG TABLET PO SCH (10:59)
[2018-03-20] MEDS: VANCOMYCIN INJ 1,500 MG in SODIUM CHLORIDE 0.9% 500 ML IV SCH ×2 (00:12→12:20)
[2018-03-20] MEDS: SODIUM CHLORIDE 0.9% 1,000 ML IV SCH ×3 (03:00→18:45)
[2018-03-20] MEDS: PIPERACILLIN/TAZOBACTAM 3,375 MG in SODIUM CHLORIDE 0.9% 100 ML IV SCH (06:38)
[2018-03-20] MEDS: MORPHINE 4 MG/1 ML VIAL IV PRN ×3 (07:23→22:01)
[2018-03-20] MEDS: LABETALOL 200 MG TABLET PO SCH ×2 (09:31→22:02)
[2018-03-20] MEDS: PANTOPRAZOLE 40 MG TABLET PO SCH (09:31)
[2018-03-20] MEDS ORDERED: POTASSIUM CHLORIDE 20 MEQ TABLET PO ONE (12:00)
[2018-03-20] MEDS: ceFAZolin 1,000 MG in SYRINGE 1 EACH IV SCH (17:20)
[2018-03-20] MEDS: metroNIDAZOLE INJ 500 MG in PREMIX 1 EACH IV SCH (17:39)
[2018-03-21] MEDS: ceFAZolin 1,000 MG in SYRINGE 1 EACH IV SCH ×2 (00:56→09:49)
[2018-03-21] MEDS: metroNIDAZOLE INJ 500 MG in PREMIX 1 EACH IV SCH ×2 (00:59→09:57)
[2018-03-21] MEDS: SODIUM CHLORIDE 0.9% 1,000 ML IV SCH (03:59)
[2018-03-21] MEDS: MORPHINE 4 MG/1 ML VIAL IV PRN (05:27)
[2018-03-21 06:47] LABS: Calcium 8.1 MG/DL (8.5-10.1); Osmolality,Calculated 275.4 MOS/KG (273-304); Potassium 3.7 MMOL/L (3.5-5.1)
[2018-03-21 07:46] VITALS: BP 151/80
[2018-03-21] MEDS: PANTOPRAZOLE 40 MG TABLET PO SCH (09:42)
[2018-03-21] MEDS: LABETALOL 200 MG TABLET PO SCH (09:43)
== END 2018-03-21 10:40 | disposition home or self-care (01) | DRG 603 ==
LOC: N.ED 17:47 → SUATTDRO 21:01 → N.2E 21:01
PROVIDERS: ADMIT Internal Medicine Infectious Disease; ATTEND Internal Medicine

== ENCOUNTER 2019-01-19 09:22 | Inpatient (IN) ==
[2019-01-19] MEDS ORDERED: SODIUM CHLORIDE 0.9% 1,000 ML IV STA (09:52)
[2019-01-19] MEDS ORDERED: ONDANSETRON 4 MG/2 ML VIAL IV STA (09:52)
[2019-01-19] MEDS ORDERED: CEFTAROLINE 600 MG in SODIUM CHLORIDE 0.9% 100 ML IV STA ×2 (09:52→11:55)
[2019-01-19] MEDS ORDERED: HYDROmorphone 2 MG/1 ML VIAL IV ONE (09:52)
[2019-01-19 10:41] LABS: Apearance,Urine Slightly Hazy (Clear); Bilirubin,Urine Negative (Negative); Blood, Urine Moderate mg/dL (Negative); Glucose,Urine (UA) Negative (Negative); Ketones,Urine Negative (Negative); Mucus,Urine Moderate /LPF (Occasional); Nitrite,Urine Negative (Negative); Protein,Urine Negative; RBC,Urine 13 /HPF (0-4); Squamous Epithelial Cell,Urine Occasional /HPF (0-10); Urine Color Yellow (Yellow); Urine Specific Gravity 1.024 (1.001-1.035); Urine Urobilinogen < 2.0 EU/DL (0.2-1.0); WBC,Urine 38 /HPF (0-6)
[2019-01-19 10:55] LABS: Alanine Aminotransferase 15 U/L (13-56); Albumin 3.1 G/DL (3.4-5.0); Alkaline Phosphatase 92 U/L (45-117); Aspartate Amino Transferase 12 U/L (0-37); Bilirubin,Total < 0.39 MG/DL (0.2-1.0); Blood Urea Nitrogen 7 MG/DL (7-18); Calcium 9.3 MG/DL (8.5-10.1); Estimated Glom Filtration Rate 155 ML/MIN; Glucose 79 MG/DL (74-106); Osmolality,Calculated 271.7 MOS/KG (273-304)
[2019-01-19 11:39] LABS: Basophils # 0.1 10*3/uL (0.0-0.2); Basophils % 0.5 % (0.0-0.8); Eosinophils # 0.3 10*3/uL (0.0-0.87); Eosinophils % 2.8 % (0.00-10.9); Hematocrit 29.8 VOL% (35.7-47.0); Immature Granulocytes % 0.5 %; Immature Granulocytes Absolute 0.06 #; Lymphocytes # 1.6 10*3/uL (1.4-4.0); Lymphocytes % 13.9 % (21.3-54.2); Mean Corpuscular HGB Conc 27.9 GM/DL (32-36); Mean Corpuscular Volume 65.5 FL (87-102); Mean Platelet Volume 10.3 FL (9.6-12.0); Monocytes % 5.5 % (1.7-12.7); Neutrophils % 76.8 % (38.7-73.9); Platelet Count 444 T/CUMM (130-400); Red Blood Count 4.55 MC/CUMM (3.8-5.5); White Blood Count 11.7 T/CUMM (4-12)
[2019-01-19 11:40] LABS: Hemoglobin 8.3 GM/DL (12.0-16.0)
[2019-01-19 11:43] LABS: Anisocytosis 1+; Hypochromasia 2+; Microcytosis 1+; Ovalocytes Slight; Platelet Estimate Increased; Polychromasia Slight
[2019-01-19] MEDS ORDERED: CEFTAROLINE 600 MG in SODIUM CHLORIDE 0.9% 100 ML IV SCH (12:00)
[2019-01-19] MEDS ORDERED: INFLUENZA VIRUS VACCINE 0.5 ML SYRINGE IM ONE (14:08)
[2019-01-19] MEDS: SODIUM CHLORIDE 0.9% 1,000 ML IV SCH ×2 (15:11→23:27)
[2019-01-19] MEDS: CIPROFLOXACIN INJ 400 MG in PREMIX 1 EACH IV SCH (15:12)
[2019-01-19] MEDS: FERROUS SULFATE 325 MG TABLET PO SCH ×2 (15:27→20:27)
[2019-01-19] MEDS: ONDANSETRON 4 MG/2 ML VIAL IV PRN (19:00)
[2019-01-19] MEDS: amLODIPine 5 MG TABLET PO SCH (19:04)
[2019-01-19] MEDS: LABETALOL 200 MG TABLET PO SCH (20:27)
[2019-01-19] MEDS: MORPHINE 4 MG/1 ML VIAL IV PRN (23:27)
[2019-01-20] MEDS: CIPROFLOXACIN INJ 400 MG in PREMIX 1 EACH IV SCH ×2 (02:32→17:24)
[2019-01-20 05:24] LABS: Calcium 7.9 MG/DL (8.5-10.1); Osmolality,Calculated 266.1 MOS/KG (273-304)
[2019-01-20 05:46] LABS: Basophils % 0.1 % (0.0-0.8); Eosinophils # 0.1 10*3/uL (0.0-0.87); Eosinophils % 1.5 % (0.00-10.9); Hematocrit 25.1 VOL% (35.7-47.0); Immature Granulocytes % 0.4 %; Immature Granulocytes Absolute 0.04 #; Lymphocytes # 0.7 10*3/uL (1.4-4.0); Lymphocytes % 7.3 % (21.3-54.2); Mean Corpuscular HGB Conc 28.3 GM/DL (32-36); Mean Platelet Volume 10.9 FL (9.6-12.0); Monocytes % 5.4 % (1.7-12.7); Neutrophils % 85.3 % (38.7-73.9); Platelet Count 376 T/CUMM (130-400); Red Blood Count 3.86 MC/CUMM (3.8-5.5); White Blood Count 9.3 T/CUMM (4-12)
[2019-01-20 05:48] LABS: Hemoglobin 7.1 GM/DL (12.0-16.0)
[2019-01-20 06:05] LABS: Platelet Estimate Normal; Polychromasia Few
[2019-01-20] MEDS: MORPHINE 4 MG/1 ML VIAL IV PRN ×3 (06:50→22:46)
[2019-01-20] MEDS: SODIUM CHLORIDE 0.9% 1,000 ML IV SCH ×2 (08:49→19:18)
[2019-01-20] MEDS: PANTOPRAZOLE 40 MG TABLET PO SCH (09:27)
[2019-01-20] MEDS: FERROUS SULFATE 325 MG TABLET PO SCH ×4 (09:28→20:26)
[2019-01-20] MEDS: LABETALOL 200 MG TABLET PO SCH ×2 (09:30→20:25)
[2019-01-20] MEDS ORDERED: POTASSIUM CHLORIDE 20 MEQ TABLET PO ONE (11:00)
[2019-01-20] MEDS: ONDANSETRON 4 MG/2 ML VIAL IV PRN ×2 (12:21→19:08)
[2019-01-20] MEDS: VANCOMYCIN INJ 1,250 MG in SODIUM CHLORIDE 0.9% 250 ML IV SCH ×2 (12:26→20:25)
[2019-01-20] MEDS: MULTIVITAMIN (BEROCCA) TABLET PO SCH (14:42)
[2019-01-20] MEDS: LACTOBACILLUS ACIDOPHILUS/BULGARICUS CAPLET PO SCH ×3 (14:42→20:25)
[2019-01-20] MEDS: ZINC GLUCONATE 50 MG TABLET PO SCH (14:42)
[2019-01-20] MEDS: SPIRONOLACTONE 100 MG TABLET PO SCH (14:43)
[2019-01-20] MEDS: CLINDAMYCIN 1% LOTION 60 ML BOTTLE TOP SCH ×2 (15:06→20:28)
[2019-01-20] MEDS: amLODIPine 5 MG TABLET PO SCH (19:08)
[2019-01-21] MEDS: SODIUM CHLORIDE 0.9% 1,000 ML IV SCH ×3 (01:26→17:51)
[2019-01-21] MEDS: VANCOMYCIN INJ 1,250 MG in SODIUM CHLORIDE 0.9% 250 ML IV SCH ×3 (04:10→22:44)
[2019-01-21 04:48] LABS: Basophils % 0.4 % (0.0-0.8); Eosinophils # 0.2 10*3/uL (0.0-0.87); Hematocrit 25.2 VOL% (35.7-47.0); Immature Granulocytes % 0.6 %; Immature Granulocytes Absolute 0.05 #; Lymphocytes # 1.1 10*3/uL (1.4-4.0); Lymphocytes % 13.5 % (21.3-54.2); Mean Corpuscular HGB Conc 27.8 GM/DL (32-36); Mean Platelet Volume 9.8 FL (9.6-12.0); Monocytes % 8.2 % (1.7-12.7); Neutrophils % 75.3 % (38.7-73.9); Platelet Count 328 T/CUMM (130-400); Red Blood Count 3.82 MC/CUMM (3.8-5.5); Red Cell Distribution Width 18.6 % (9.3-17.3); White Blood Count 8.3 T/CUMM (4-12)
[2019-01-21 04:58] LABS: % Iron Saturation 3.8 % (18-50); Ferritin 22.8 ng/ml (8-252)
[2019-01-21 04:59] LABS: Calcium 7.9 MG/DL (8.5-10.1); Osmolality,Calculated 268.8 MOS/KG (273-304)
[2019-01-21 05:05] LABS: Folate > 24.0 NG/ML (5.4-24.0); Vitamin B12 537 PG/ML (211-911)
[2019-01-21 05:12] LABS: Hypochromasia 2+; Platelet Estimate Normal
[2019-01-21] MEDS: CIPROFLOXACIN INJ 400 MG in PREMIX 1 EACH IV SCH ×2 (05:46→17:53)
[2019-01-21 05:54] LABS: Sedimentation Rate-Westergren 95 MM/HR (0-20)
[2019-01-21] MEDS: MORPHINE 4 MG/1 ML VIAL IV PRN ×4 (06:13→22:45)
[2019-01-21] MEDS ORDERED: POTASSIUM CHLORIDE 20 MEQ TABLET PO ONE (09:31)
[2019-01-21] MEDS ORDERED: ERGOCALCIFEROL 50,000 UNIT CAPSULE PO ONE (09:31)
[2019-01-21] MEDS: LACTOBACILLUS ACIDOPHILUS/BULGARICUS CAPLET PO SCH ×2 (09:43→20:48)
[2019-01-21] MEDS: MULTIVITAMIN (BEROCCA) TABLET PO SCH (09:44)
[2019-01-21] MEDS: LABETALOL 200 MG TABLET PO SCH ×2 (09:44→20:48)
[2019-01-21] MEDS: PANTOPRAZOLE 40 MG TABLET PO SCH (09:44)
[2019-01-21] MEDS: CHOLECALCIFEROL 1,000 UNIT TABLET PO SCH (09:45)
[2019-01-21] MEDS: FERROUS SULFATE 325 MG TABLET PO SCH ×3 (09:46→20:49)
[2019-01-21] MEDS: SPIRONOLACTONE 100 MG TABLET PO SCH (09:46)
[2019-01-21] MEDS: ZINC GLUCONATE 50 MG TABLET PO SCH (09:50)
[2019-01-21] MEDS ORDERED: IRON SUCROSE 300 MG in SODIUM CHLORIDE 0.9% 100 ML IV ONE (10:00)
[2019-01-21] MEDS: CLINDAMYCIN 1% LOTION 60 ML BOTTLE TOP SCH ×2 (10:33→22:45)
[2019-01-21] MEDS: amLODIPine 5 MG TABLET PO SCH (19:19)
[2019-01-22] MEDS: SODIUM CHLORIDE 0.9% 1,000 ML IV SCH ×4 (03:58→20:44)
[2019-01-22] MEDS: CIPROFLOXACIN INJ 400 MG in PREMIX 1 EACH IV SCH (04:44)
[2019-01-22] MEDS: MORPHINE 4 MG/1 ML VIAL IV PRN ×4 (05:48→22:00)
[2019-01-22] MEDS: VANCOMYCIN INJ 1,250 MG in SODIUM CHLORIDE 0.9% 250 ML IV SCH ×2 (05:49→18:21)
[2019-01-22 05:56] LABS: Basophils % 0.2 % (0.0-0.8); Eosinophils # 0.4 10*3/uL (0.0-0.87); Eosinophils % 4.9 % (0.00-10.9); Hematocrit 23.9 VOL% (35.7-47.0); Hemoglobin 6.7 GM/DL (12.0-16.0); Immature Granulocytes % 0.7 %; Immature Granulocytes Absolute 0.06 #; Lymphocytes % 11.7 % (21.3-54.2); Mean Corpuscular Volume 66.6 FL (87-102); Mean Platelet Volume 9.8 FL (9.6-12.0); Monocytes % 6.6 % (1.7-12.7); Neutrophils % 75.9 % (38.7-73.9); Platelet Count 304 T/CUMM (130-400); Red Blood Count 3.59 MC/CUMM (3.8-5.5); Red Cell Distribution Width 19.1 % (9.3-17.3); White Blood Count 8.3 T/CUMM (4-12)
[2019-01-22 06:14] LABS: Calcium 8.3 MG/DL (8.5-10.1); Osmolality,Calculated 278.3 MOS/KG (273-304)
[2019-01-22 06:23] LABS: Hypochromasia 2+; Ovalocytes Slight; Platelet Estimate Adequate
[2019-01-22] MEDS ORDERED: MAGNESIUM SULF RIDER 2 GM in PREMIX 1 EACH IV ONE (08:37)
[2019-01-22] MEDS: CHOLECALCIFEROL 1,000 UNIT TABLET PO SCH (09:32)
[2019-01-22] MEDS: LABETALOL 200 MG TABLET PO SCH ×2 (09:32→20:23)
[2019-01-22] MEDS: LACTOBACILLUS ACIDOPHILUS/BULGARICUS CAPLET PO SCH ×2 (09:32→20:23)
[2019-01-22] MEDS: MULTIVITAMIN (BEROCCA) TABLET PO SCH (09:33)
[2019-01-22] MEDS: ZINC GLUCONATE 50 MG TABLET PO SCH (09:34)
[2019-01-22] MEDS: PANTOPRAZOLE 40 MG TABLET PO SCH (09:41)
[2019-01-22] MEDS: SPIRONOLACTONE 100 MG TABLET PO SCH (09:41)
[2019-01-22] MEDS: FERROUS SULFATE 325 MG TABLET PO SCH ×3 (09:42→20:44)
[2019-01-22] MEDS: POTASSIUM CHLORIDE 20 MEQ TABLET PO SCH ×3 (09:43→22:35)
[2019-01-22] MEDS: CLINDAMYCIN 1% LOTION 60 ML BOTTLE TOP SCH ×2 (10:02→20:44)
[2019-01-22] MEDS: LEVOFLOXACIN 500 MG TABLET PO SCH (10:05)
[2019-01-22 10:06] LABS: Hemoglobin A1 (Alkaline) 97.7 % (96.5-98.5); Hemoglobin A2 (Alkaline) 2.3 % (1.5-3.5)
[2019-01-22] MEDS ORDERED: SODIUM CHLORIDE 0.9% 1,000 ML IV PRN (10:50)
[2019-01-22] MEDS ORDERED: MAGNESIUM SULF RIDER 2 GM in PREMIX 1 EACH IV PRN (10:51)
[2019-01-22] MEDS ORDERED: MAGNESIUM SULF RIDER 4 GM in PREMIX 1 EACH IV PRN (10:51)
[2019-01-22] MEDS: ONDANSETRON 4 MG/2 ML VIAL IV PRN (11:37)
[2019-01-22] MEDS: amLODIPine 5 MG TABLET PO SCH (18:41)
[2019-01-22 20:20] LABS: Hematocrit 29.9 VOL% (35.7-47.0); Hemoglobin 8.8 GM/DL (12.0-16.0)
[2019-01-23] MEDS: SODIUM CHLORIDE 0.9% 1,000 ML IV SCH ×3 (01:40→15:40)
[2019-01-23] MEDS: VANCOMYCIN INJ 1,250 MG in SODIUM CHLORIDE 0.9% 250 ML IV SCH ×3 (02:21→18:58)
[2019-01-23 04:51] LABS: Basophils % 0.3 % (0.0-0.8); Eosinophils # 0.6 10*3/uL (0.0-0.87); Eosinophils % 6.3 % (0.00-10.9); Hematocrit 28.6 VOL% (35.7-47.0); Hemoglobin 8.3 GM/DL (12.0-16.0); Immature Granulocytes % 0.6 %; Immature Granulocytes Absolute 0.06 #; Lymphocytes # 1.5 10*3/uL (1.4-4.0); Lymphocytes % 14.3 % (21.3-54.2); Mean Corpuscular Volume 68.8 FL (87-102); Mean Platelet Volume 10.8 FL (9.6-12.0); Monocytes % 5.8 % (1.7-12.7); Neutrophils % 72.7 % (38.7-73.9); Platelet Count 346 T/CUMM (130-400); Red Blood Count 4.16 MC/CUMM (3.8-5.5); Red Cell Distribution Width 21.4 % (9.3-17.3); White Blood Count 10.1 T/CUMM (4-12)
[2019-01-23 05:11] LABS: Calcium 8.3 MG/DL (8.5-10.1)
[2019-01-23] MEDS ORDERED: metFORMIN 500 MG TABLET PO SCH ×2 (08:00→09:20)
[2019-01-23] MEDS: LABETALOL 200 MG TABLET PO SCH ×2 (08:21→20:33)
[2019-01-23] MEDS: LEVOFLOXACIN 500 MG TABLET PO SCH (08:21)
[2019-01-23] MEDS: LACTOBACILLUS ACIDOPHILUS/BULGARICUS CAPLET PO SCH ×2 (08:21→20:34)
[2019-01-23] MEDS: PANTOPRAZOLE 40 MG TABLET PO SCH (08:22)
[2019-01-23] MEDS: SPIRONOLACTONE 100 MG TABLET PO SCH (08:22)
[2019-01-23] MEDS: POTASSIUM CHLORIDE 20 MEQ TABLET PO SCH ×2 (08:22→20:34)
[2019-01-23] MEDS: ZINC GLUCONATE 50 MG TABLET PO SCH (08:22)
[2019-01-23] MEDS: CHOLECALCIFEROL 1,000 UNIT TABLET PO SCH (08:22)
[2019-01-23] MEDS: MULTIVITAMIN (BEROCCA) TABLET PO SCH (08:22)
[2019-01-23] MEDS: FERROUS SULFATE 325 MG TABLET PO SCH ×3 (08:22→20:34)
[2019-01-23] MEDS: MORPHINE 4 MG/1 ML VIAL IV PRN ×3 (08:27→23:47)
[2019-01-23] MEDS: ONDANSETRON 4 MG/2 ML VIAL IV PRN (08:33)
[2019-01-23] MEDS: CLINDAMYCIN 1% LOTION 60 ML BOTTLE TOP SCH ×2 (09:03→21:15)
[2019-01-23] MEDS ORDERED: IRON SUCROSE 300 MG in SODIUM CHLORIDE 0.9% 100 ML IV ONE (09:19)
[2019-01-23] MEDS: amLODIPine 5 MG TABLET PO SCH (18:20)
[2019-01-24] MEDS: SODIUM CHLORIDE 0.9% 1,000 ML IV SCH ×5 (02:39→21:25)
[2019-01-24] MEDS: VANCOMYCIN INJ 1,250 MG in SODIUM CHLORIDE 0.9% 250 ML IV SCH ×3 (03:35→18:34)
[2019-01-24] MEDS: MORPHINE 4 MG/1 ML VIAL IV PRN ×4 (03:59→22:42)
[2019-01-24 05:38] LABS: Calcium 8.3 MG/DL (8.5-10.1); Osmolality,Calculated 270.7 MOS/KG (273-304)
[2019-01-24 05:43] LABS: Basophils # 0.1 10*3/uL (0.0-0.2); Basophils % 0.4 % (0.0-0.8); Eosinophils # 0.7 10*3/uL (0.0-0.87); Eosinophils % 6.1 % (0.00-10.9); Hematocrit 29.7 VOL% (35.7-47.0); Immature Granulocytes % 0.7 %; Immature Granulocytes Absolute 0.08 #; Lymphocytes # 1.7 10*3/uL (1.4-4.0); Lymphocytes % 15.3 % (21.3-54.2); Mean Corpuscular Volume 69.4 FL (87-102); Mean Platelet Volume 10.6 FL (9.6-12.0); Monocytes % 5.7 % (1.7-12.7); Neutrophils % 71.8 % (38.7-73.9); Platelet Count 347 T/CUMM (130-400); Red Blood Count 4.28 MC/CUMM (3.8-5.5); Red Cell Distribution Width 22.2 % (9.3-17.3); White Blood Count 11.3 T/CUMM (4-12)
[2019-01-24 05:45] LABS: Hemoglobin 8.6 GM/DL (12.0-16.0)
[2019-01-24 06:05] LABS: Hypochromasia Slight
[2019-01-24 06:06] LABS: Platelet Estimate Normal; Polychromasia Few
[2019-01-24] MEDS ORDERED: LIDOCAINE 1%/EPI INJ 20 ML VIAL ONE (06:45)
[2019-01-24] MEDS ORDERED: BUPIVACAINE MPF 0.25% 30 ML VIAL ONE (06:45)
[2019-01-24] MEDS ORDERED: ONDANSETRON 4 MG/2 ML VIAL IV PRN (08:24)
[2019-01-24] MEDS ORDERED: LIDOCAINE 2% 5 ML VIAL ONE (08:25)
[2019-01-24] MEDS ORDERED: PROPOFOL 200 MG/20 ML VIAL IV ONE (08:25)
[2019-01-24] MEDS: HYDROmorphone 2 MG/1 ML VIAL IV PRN ×2 (08:25→08:40)
[2019-01-24] MEDS ORDERED: ONDANSETRON 4 MG/2 ML VIAL ONE ×2 (08:26→08:31)
[2019-01-24] MEDS ORDERED: fentaNYL 100 MCG/2 ML VIAL ONE (08:26)
[2019-01-24] MEDS ORDERED: SUCCINYLCHOLINE 200 MG/10 ML VIAL ONE (08:26)
[2019-01-24] MEDS ORDERED: SEVOFLURANE 1 UNIT/15 MINUTE INH ONE (08:26)
[2019-01-24] MEDS ORDERED: ALBUTEROL INHALER 8 GM INH ONE (08:26)
[2019-01-24] MEDS ORDERED: MIDAZOLAM 2 MG/2 ML VIAL ONE (08:26)
[2019-01-24] MEDS ORDERED: FUROSEMIDE 20 MG/2 ML VIAL ONE (08:26)
[2019-01-24] MEDS ORDERED: DEXAMETHASONE 4 MG/1 ML VIAL ONE (08:26)
[2019-01-24] MEDS ORDERED: HYDROmorphone 2 MG/1 ML VIAL ONE (08:31)
[2019-01-24] MEDS ORDERED: IRON SUCROSE 300 MG in SODIUM CHLORIDE 0.9% 100 ML IV ONE (10:16)
[2019-01-24] MEDS: LACTOBACILLUS ACIDOPHILUS/BULGARICUS CAPLET PO SCH ×2 (10:19→21:27)
[2019-01-24] MEDS: LEVOFLOXACIN 500 MG TABLET PO SCH (10:19)
[2019-01-24] MEDS: POTASSIUM CHLORIDE 20 MEQ TABLET PO SCH ×2 (10:19→21:26)
[2019-01-24] MEDS: SPIRONOLACTONE 100 MG TABLET PO SCH (10:19)
[2019-01-24] MEDS: ZINC GLUCONATE 50 MG TABLET PO SCH (10:20)
[2019-01-24] MEDS: PANTOPRAZOLE 40 MG TABLET PO SCH (10:20)
[2019-01-24] MEDS: CLINDAMYCIN 1% LOTION 60 ML BOTTLE TOP SCH ×2 (10:20→21:27)
[2019-01-24] MEDS: MULTIVITAMIN (BEROCCA) TABLET PO SCH (10:20)
[2019-01-24] MEDS: LABETALOL 200 MG TABLET PO SCH ×2 (10:20→21:27)
[2019-01-24] MEDS: FERROUS SULFATE 325 MG TABLET PO SCH ×3 (10:20→21:26)
[2019-01-24] MEDS: CHOLECALCIFEROL 1,000 UNIT TABLET PO SCH (10:20)
[2019-01-24] MEDS: MAGNESIUM CHLORIDE 64 MG TABLET PO SCH (11:06)
[2019-01-24] MEDS: amLODIPine 5 MG TABLET PO SCH (18:11)
[2019-01-25] MEDS: VANCOMYCIN INJ 1,250 MG in SODIUM CHLORIDE 0.9% 250 ML IV SCH ×2 (03:14→11:57)
[2019-01-25 05:57] LABS: Basophils % 0.1 % (0.0-0.8); Eosinophils % 0.1 % (0.00-10.9); Hematocrit 32.5 VOL% (35.7-47.0); Hemoglobin 9.5 GM/DL (12.0-16.0); Immature Granulocytes % 1.1 %; Immature Granulocytes Absolute 0.19 #; Lymphocytes # 1.4 10*3/uL (1.4-4.0); Lymphocytes % 8.2 % (21.3-54.2); Mean Corpuscular HGB Conc 29.2 GM/DL (32-36); Mean Corpuscular Volume 69.6 FL (87-102); Mean Platelet Volume 10.6 FL (9.6-12.0); Monocytes % 5.3 % (1.7-12.7); NRBC # 0.02 10*3/uL; Neutrophils % 85.2 % (38.7-73.9); Platelet Count 427 T/CUMM (130-400); Red Blood Count 4.67 MC/CUMM (3.8-5.5); Red Cell Distribution Width 23.5 % (9.3-17.3); White Blood Count 16.9 T/CUMM (4-12)
[2019-01-25 06:21] LABS: Hypochromasia 2+; Platelet Estimate Adequate
[2019-01-25 06:35] LABS: Calcium 9.7 MG/DL (8.5-10.1); Osmolality,Calculated 275.4 MOS/KG (273-304)
[2019-01-25] MEDS: MORPHINE 4 MG/1 ML VIAL IV PRN ×2 (06:38→11:56)
[2019-01-25] MEDS: MULTIVITAMIN (BEROCCA) TABLET PO SCH (08:37)
[2019-01-25] MEDS: LACTOBACILLUS ACIDOPHILUS/BULGARICUS CAPLET PO SCH (08:37)
[2019-01-25] MEDS: SPIRONOLACTONE 100 MG TABLET PO SCH (08:37)
[2019-01-25] MEDS: ZINC GLUCONATE 50 MG TABLET PO SCH (08:37)
[2019-01-25] MEDS: CHOLECALCIFEROL 1,000 UNIT TABLET PO SCH (08:38)
[2019-01-25] MEDS: MAGNESIUM CHLORIDE 64 MG TABLET PO SCH (08:38)
[2019-01-25] MEDS: FERROUS SULFATE 325 MG TABLET PO SCH (08:38)
[2019-01-25] MEDS: LEVOFLOXACIN 500 MG TABLET PO SCH (08:38)
[2019-01-25] MEDS: PANTOPRAZOLE 40 MG TABLET PO SCH (08:39)
[2019-01-25] MEDS: LABETALOL 200 MG TABLET PO SCH (08:39)
[2019-01-25] MEDS: POTASSIUM CHLORIDE 20 MEQ TABLET PO SCH (08:41)
[2019-01-25] MEDS: SODIUM CHLORIDE 0.9% 1,000 ML IV SCH (10:20)
[2019-01-25 11:45] VITALS: BP 121/55
== END 2019-01-25 15:01 | disposition home or self-care (01) | DRG 581 ==
LOC: N.ED 09:22 → N.EDINP 11:42 → N.3E 12:36
PROVIDERS: ADMIT Hospitalist; ATTEND Hospitalist

== ENCOUNTER 2019-10-02 14:12 | Inpatient (IN) ==
[2019-10-02 14:59] LABS: Basophils % 0.2 % (0.0-0.8); Eosinophils % 0.4 % (0.00-10.9); Hematocrit 38.4 VOL% (35.7-47.0); Hemoglobin 12.1 GM/DL (12.0-16.0); Immature Granulocytes % 0.2 %; Immature Granulocytes Absolute 0.02 #; Lymphocytes # 1.2 10*3/uL (1.4-4.0); Lymphocytes % 13.4 % (21.3-54.2); Mean Corpuscular HGB Conc 31.5 GM/DL (32-36); Mean Corpuscular Volume 79.7 FL (87-102); Mean Platelet Volume 12.3 FL (9.6-12.0); Monocytes % 5.3 % (1.7-12.7); Neutrophils % 80.5 % (38.7-73.9); Platelet Count 240 T/CUMM (130-400); Red Blood Count 4.82 MC/CUMM (3.8-5.5); Red Cell Distribution Width 15.8 % (9.3-17.3)
[2019-10-02 15:14] LABS: Alanine Aminotransferase 35 U/L (13-56); Albumin 2.3 G/DL (3.4-5.0); Alkaline Phosphatase 292 U/L (45-117); Aspartate Amino Transferase 21 U/L (0-37); Bilirubin,Direct < 0.100 MG/DL (0.0-0.20); Bilirubin,Total < 0.39 MG/DL (0.2-1.0); Blood Urea Nitrogen 10 MG/DL (7-18); Calcium 9.3 MG/DL (8.5-10.1); Estimated Glom Filtration Rate 170 ML/MIN; Glucose 67 MG/DL (74-106); Osmolality,Calculated 269.8 MOS/KG (273-304); Total Protein 7.9 G/DL (6.4-8.3); Uric Acid 5.6 MG/DL (2.6-6.0)
[2019-10-02 15:22] LABS: INR 0.9
[2019-10-02 16:08] LABS: Apearance,Urine Slightly Hazy (Clear); Bilirubin,Urine Negative (Negative); Blood, Urine Small mg/dL (Negative); Glucose,Urine (UA) Negative (Negative); Ketones,Urine Negative (Negative); Mucus,Urine Occasional /LPF (Occasional); Nitrite,Urine Negative (Negative); Protein,Urine 30 MG/DL; RBC,Urine 4 /HPF (0-4); Squamous Epithelial Cell,Urine Occasional /HPF (0-10); Urine Color Yellow (Yellow); Urine Specific Gravity 1.018 (1.001-1.035); Urine Urobilinogen < 2.0 EU/DL (0.2-1.0); WBC,Urine 3 /HPF (0-6)
[2019-10-02] MEDS ORDERED: FAMOTIDINE 20 MG/2 ML VIAL IV ONE (16:18)
[2019-10-02] MEDS ORDERED: CITRIC ACID/SODIUM CITRATE 30 ML UDCUP PO ONE (16:18)
[2019-10-02] MEDS ORDERED: ceFAZolin 3,000 MG in SYRINGE 1 EACH IV ONE (16:18)
[2019-10-02] MEDS ORDERED: OXYTOCIN/LR 20 UNIT/1,000 ML BAG IV ONE ×2 (16:21→18:12)
[2019-10-02] MEDS ORDERED: LACTATED RINGERS 1,000 ML IV SCH ×2 (16:30→18:30)
[2019-10-02] MEDS ORDERED: LACTATED RINGERS 1,000 ML IV ONE (16:34)
[2019-10-02] MEDS ORDERED: MORPHINE 10 MG/10 ML VIAL ONE (16:39)
[2019-10-02] MEDS ORDERED: PHENYLEPHRINE 1 MG/10 ML SYRINGE IV ONE (16:39)
[2019-10-02] MEDS ORDERED: BUPIVACAINE SPINAL 0.75% 2 ML AMP SPINAL ONE (16:39)
[2019-10-02] MEDS ORDERED: ONDANSETRON 4 MG/2 ML VIAL ONE (16:39)
[2019-10-02 17:50] LABS: Cord Arterial Blood HCO3 19.4 MMOL/L
[2019-10-02 17:53] LABS: Cord Venous Blood PCO2 41.8 MMHG; Cord Venous Blood PO2 24.6
[2019-10-02 18:05] LABS: Apearance,Urine CLEAR (Clear); Bilirubin,Urine Negative (Negative); Blood, Urine Negative (Negative); Glucose,Urine (UA) Negative (Negative); Ketones,Urine Negative (Negative); Mucus,Urine Few /LPF (Occasional); Nitrite,Urine Negative (Negative); Protein,Urine 30 MG/DL; RBC,Urine 3 /HPF (0-4); Squamous Epithelial Cell,Urine Occasional /HPF (0-10); Urine Color Yellow (Yellow); Urine Specific Gravity 1.024 (1.001-1.035); Urine Urobilinogen < 2.0 EU/DL (0.2-1.0); WBC,Urine 1 /HPF (0-6)
[2019-10-02] MEDS ORDERED: TISSUE ADHESIVE 1 EACH APPLICATOR TOP ONE (18:05)
[2019-10-02] MEDS ORDERED: SIMETHICONE CHEW 80 MG TABLET PO PRN (18:12)
[2019-10-02] MEDS ORDERED: RHO(D) IMMUNE GLOBULIN 300 MCG SYRINGE IM ONE (18:12)
[2019-10-02] MEDS ORDERED: MAGNESIUM HYDROXIDE SUSP 30 ML UDCUP PO PRN (18:12)
[2019-10-02] MEDS ORDERED: ONDANSETRON 4 MG/2 ML VIAL IV PRN (18:12)
[2019-10-02] MEDS ORDERED: ACETAMINOPHEN 325 MG TABLET PO PRN (18:12)
[2019-10-02] MEDS ORDERED: fentaNYL 100 MCG/2 ML VIAL ONE (18:24)
[2019-10-02] MEDS ORDERED: MIDAZOLAM 2 MG/2 ML VIAL ONE (18:24)
[2019-10-02] MEDS ORDERED: MAGNESIUM SULF RIDER 100 ML IV ONE (20:42)
[2019-10-02] MEDS: LABETALOL 100 MG TABLET PO SCH (20:53)
[2019-10-02] MEDS ORDERED: MAGNESIUM SULF DRIP 40 GM/1,000 ML ML IV SCH (21:15)
[2019-10-02] MEDS: DOCUSATE SODIUM 100 MG CAPSULE PO SCH (22:46)
[2019-10-03 03:33] LABS: Basophils % 0.2 % (0.0-0.8); Eosinophils # 0.1 10*3/uL (0.0-0.87); Eosinophils % 0.7 % (0.00-10.9); Hematocrit 38.4 VOL% (35.7-47.0); Hemoglobin 12.4 GM/DL (12.0-16.0); Immature Granulocytes % 0.3 %; Immature Granulocytes Absolute 0.03 #; Lymphocytes # 1.3 10*3/uL (1.4-4.0); Lymphocytes % 13.8 % (21.3-54.2); Mean Corpuscular HGB Conc 32.3 GM/DL (32-36); Mean Corpuscular Volume 79.2 FL (87-102); Mean Platelet Volume 12.8 FL (9.6-12.0); Monocytes % 6.3 % (1.7-12.7); Neutrophils % 78.7 % (38.7-73.9); Platelet Count 147 T/CUMM (130-400); Red Blood Count 4.85 MC/CUMM (3.8-5.5); Red Cell Distribution Width 15.9 % (9.3-17.3)
[2019-10-03 04:38] LABS: Lymphocytes 14 % (20-55); Segmented Neutrophils 82 % (50-85); Total Cells Counted 100
[2019-10-03 04:39] LABS: Anisocytosis 1+; Platelet Estimate Adequate
[2019-10-03] MEDS: DOCUSATE SODIUM 100 MG CAPSULE PO SCH ×2 (09:12→22:00)
[2019-10-03] MEDS: MULTIVITAMIN (PRENATAL) TABLET PO SCH (09:12)
[2019-10-03] MEDS: LABETALOL 100 MG TABLET PO SCH (12:10)
[2019-10-03] MEDS: IBUPROFEN 800 MG TABLET PO PRN (22:00)
[2019-10-04] MEDS: DOCUSATE SODIUM 100 MG CAPSULE PO SCH (08:08)
[2019-10-04] MEDS: MULTIVITAMIN (PRENATAL) TABLET PO SCH (08:12)
[2019-10-04 11:25] VITALS: BP 106/69
[2019-10-04] MEDS: IBUPROFEN 800 MG TABLET PO PRN (12:44)
== END 2019-10-04 13:00 | disposition home or self-care (01) | DRG 540 ==
LOC: N.LDOUT 14:12 → N.LD 14:14 → N.OB 10-03 21:50 → UNDODISIN 10-04 12:01
PROVIDERS: ADMIT Obstetrics & Gynecology; ATTEND Obstetrics & Gynecology
PROC: LDCSECT (ICD-10-PCS; 2019-10-02 17:00)

== ENCOUNTER 2021-11-04 14:28 | Inpatient (IN) ==
[2021-11-04] MEDS ORDERED: ONDANSETRON 4 MG/2 ML VIAL IV STA (16:27)
[2021-11-04] MEDS ORDERED: PANTOPRAZOLE 40 MG VIAL IV STA (16:27)
[2021-11-04] MEDS ORDERED: SODIUM CHLORIDE 0.9% 1,000 ML IV STA (16:27)
[2021-11-04 18:27] LABS: Alanine Aminotransferase 16 U/L (13-56); Albumin 2.9 G/DL (3.4-5.0); Alkaline Phosphatase 83 U/L (45-117); Aspartate Amino Transferase 22 U/L (0-37); Bilirubin,Total < 0.39 MG/DL (0.20-1.00); Blood Urea Nitrogen 7 MG/DL (7-18); Calcium 9.1 MG/DL (8.5-10.1); Carbon Dioxide 23 MMOL/L (21-32); Chloride 106 MMOL/L (98-107); Glucose 73 MG/DL (74-106); Osmolality,Calculated 269.8 MOS/KG (273-304); Potassium 3.7 MMOL/L (3.5-5.1); Sodium 137 MMOL/L (136-145); Total Protein 8.7 G/DL (6.4-8.2)
[2021-11-04 19:33] LABS: Urine Appearance Slightly Cloudy (Clear); Urine Color Yellow (Yellow)
[2021-11-04 19:34] LABS: Bilirubin,Urine Negative (Negative); Blood, Urine Moderate mg/dL (Negative); Glucose,Urine (UA) Negative (Negative); Ketones,Urine Trace mg/dL (Negative); Nitrite,Urine Negative (Negative); Protein,Urine 100 mg/dL (Negative); Urine Urobilinogen 0.2 eU/dL (<2.0)
[2021-11-04 19:41] LABS: Mucus,Urine Many /LPF (Occasional); RBC,Urine 60 /HPF (0-4); Squamous Epithelial Cell,Urine Few /HPF (0-10)
[2021-11-04] MEDS ORDERED: cefTRIAXone 1,000 MG in SODIUM CHLORIDE 0.9% 100 ML IV STA (19:54)
[2021-11-04 20:23] LABS: Basophils # 0.1 10*3/uL (0.0-0.2); Basophils % 0.4 % (0.0-0.8); Eosinophils # 0.6 10*3/uL (0.0-0.87); Eosinophils % 4.2 % (0.00-10.9); Hematocrit 26.9 VOL% (35.7-47.0); Hemoglobin 7.4 GM/DL (12.0-16.0); Immature Granulocytes % 0.5 %; Immature Granulocytes Absolute 0.07 #; Lymphocytes # 1.8 10*3/uL (1.4-4.0); Lymphocytes % 13.4 % (21.3-54.2); Mean Corpuscular HGB Conc 27.5 GM/DL (32-36); Mean Platelet Volume 10.1 FL (9.6-12.0); Monocytes # 0.8 10*3/uL (0.11-0.8); Monocytes % 5.8 % (1.7-12.7); Neutrophils % 75.7 % (38.7-73.9); Platelet Count 563 T/CUMM (130-400); Red Blood Count 4.27 MC/CUMM (3.8-5.5); White Blood Count 13.2 T/CUMM (4-12)
[2021-11-04] MEDS ORDERED: ACETAMINOPHEN 325 MG TABLET PO PRN (20:55)
[2021-11-04] MEDS ORDERED: DEXTROSE 10% 250 ML BAG IV PRN (20:55)
[2021-11-04] MEDS ORDERED: GLUCAGON 1 MG VIAL IM PRN (20:55)
[2021-11-04] MEDS ORDERED: ONDANSETRON 4 MG/2 ML VIAL IV PRN (20:55)
[2021-11-04] MEDS ORDERED: LACTATED RINGERS 1,000 ML IV SCH (21:00)
[2021-11-04] MEDS ORDERED: SODIUM CHLORIDE 0.9% 1,000 ML IV PRN (21:00)
[2021-11-04 21:30] LABS: % Iron Saturation 4.6 % (18-50); Ferritin 27.1 ng/mL (8-252)
[2021-11-04 21:34] LABS: Folate 20.37 NG/ML (5.38-24.0)
[2021-11-04] MEDS ORDERED: KETOROLAC 30 MG/1 ML VIAL ONE (22:03)
[2021-11-04] MEDS: PANTOPRAZOLE 40 MG VIAL IV SCH (22:10)
[2021-11-05 00:48] LABS: Basophils % 0.3 % (0.0-0.8); Eosinophils # 0.5 10*3/uL (0.0-0.87); Eosinophils % 4.7 % (0.00-10.9); Hematocrit 22.6 VOL% (35.7-47.0); Immature Granulocytes % 0.5 %; Immature Granulocytes Absolute 0.05 #; Lymphocytes # 1.6 10*3/uL (1.4-4.0); Mean Corpuscular HGB Conc 27.9 GM/DL (32-36); Mean Corpuscular Volume 62.3 FL (87-102); Mean Platelet Volume 9.8 FL (9.6-12.0); Monocytes # 0.7 10*3/uL (0.11-0.8); Monocytes % 6.6 % (1.7-12.7); Neutrophils % 71.9 % (38.7-73.9); Platelet Count 486 T/CUMM (130-400); Red Blood Count 3.63 MC/CUMM (3.8-5.5); Red Cell Distribution Width 19.7 % (9.3-17.3); White Blood Count 10.2 T/CUMM (4-12)
[2021-11-05 00:50] LABS: Hemoglobin 6.3 GM/DL (12.0-16.0)
[2021-11-05 00:59] LABS: Calcium 8.3 MG/DL (8.5-10.1); Osmolality,Calculated 273.5 MOS/KG (273-304); Potassium 3.1 MMOL/L (3.5-5.1)
[2021-11-05 01:15] LABS: PT Patient Result 10.9 SECS (10.1-12.1); Partial Thromboplastin Time 31.9 SECS (23.7-32.9)
[2021-11-05] MEDS: HYDROmorphone 1 MG/1 ML SYRINGE IV PRN ×4 (02:18→16:49)
[2021-11-05] MEDS ORDERED: IRON SUCROSE 100 MG/5 ML VIAL IV SCH (09:00)
[2021-11-05] MEDS: cefTRIAXone 1,000 MG in SODIUM CHLORIDE 0.9% 100 ML IV SCH (09:27)
[2021-11-05] MEDS: FUROSEMIDE 40 MG/4 ML VIAL IV SCH (09:27)
[2021-11-05] MEDS: METOPROLOL SUCCINATE XL 50 MG TABLET PO SCH (11:10)
[2021-11-05] MEDS: SACUBITRIL/VALSARTAN 49-51 MG TABLET PO SCH ×2 (11:10→21:30)
[2021-11-05] MEDS: PANTOPRAZOLE 40 MG VIAL IV SCH ×2 (11:11→21:32)
[2021-11-05] MEDS: FERRIC GLUCONATE COMPLEX 125 MG in SODIUM CHLORIDE 0.9% 100 ML IV SCH (11:14)
[2021-11-05] MEDS ORDERED: POTASSIUM CHLORIDE 20 MEQ TABLET PO PRN (11:41)
[2021-11-05] MEDS ORDERED: MAGNESIUM SULF RIDER 4 GM/100 ML PREMIX IV PRN (11:41)
[2021-11-05] MEDS ORDERED: MAGNESIUM SULF RIDER 2 GM/50 ML PREMIX IV PRN (11:41)
[2021-11-05 19:35] LABS: Hematocrit 30.2 VOL% (35.7-47.0)
[2021-11-05 19:36] LABS: Hemoglobin 8.9 GM/DL (12.0-16.0)
[2021-11-06] MEDS: HYDROmorphone 1 MG/1 ML SYRINGE IV PRN ×4 (00:20→22:57)
[2021-11-06 05:41] LABS: Basophils # 0.1 10*3/uL (0.0-0.2); Basophils % 0.4 % (0.0-0.8); Eosinophils # 0.8 10*3/uL (0.0-0.87); Eosinophils % 6.5 % (0.00-10.9); Hematocrit 30.3 VOL% (35.7-47.0); Hemoglobin 8.9 GM/DL (12.0-16.0); Immature Granulocytes % 0.4 %; Immature Granulocytes Absolute 0.05 #; Lymphocytes # 1.6 10*3/uL (1.4-4.0); Lymphocytes % 12.8 % (21.3-54.2); Mean Corpuscular HGB Conc 29.4 GM/DL (32-36); Mean Platelet Volume 9.6 FL (9.6-12.0); Monocytes # 0.9 10*3/uL (0.11-0.8); Monocytes % 7.2 % (1.7-12.7); Neutrophils % 72.7 % (38.7-73.9); Platelet Count 478 T/CUMM (130-400); Red Blood Count 4.59 MC/CUMM (3.8-5.5); Red Cell Distribution Width 23.8 % (9.3-17.3); White Blood Count 12.5 T/CUMM (4-12)
[2021-11-06 06:04] LABS: Alanine Aminotransferase 16 U/L (13-56); Albumin 2.4 G/DL (3.4-5.0); Alkaline Phosphatase 79 U/L (45-117); Aspartate Amino Transferase 13 U/L (0-37); Bilirubin,Total < 0.39 MG/DL (0.20-1.00); Blood Urea Nitrogen 6 MG/DL (7-18); Calcium 8.3 MG/DL (8.5-10.1); Carbon Dioxide 24 MMOL/L (21-32); Chloride 107 MMOL/L (98-107); Glucose 94 MG/DL (74-106); Osmolality,Calculated 272.7 MOS/KG (273-304); Sodium 138 MMOL/L (136-145); Total Protein 8.1 G/DL (6.4-8.2)
[2021-11-06] MEDS: POTASSIUM CHLORIDE RIDER 10 MEQ/100 ML PREMIX IV SCH ×4 (07:31→15:43)
[2021-11-06] MEDS: LACTATED RINGERS 1,000 ML IV SCH ×2 (08:30→09:01)
[2021-11-06] MEDS ORDERED: ETOMIDATE 20 MG/10 ML VIAL IV ONE (10:19)
[2021-11-06] MEDS ORDERED: LIDOCAINE 2% 5 ML VIAL ONE (10:19)
[2021-11-06] MEDS ORDERED: propofoL 200 MG/20 ML VIAL IV ONE (10:19)
[2021-11-06] MEDS: METOPROLOL SUCCINATE XL 50 MG TABLET PO SCH (12:13)
[2021-11-06] MEDS: SACUBITRIL/VALSARTAN 49-51 MG TABLET PO SCH ×2 (12:13→21:12)
[2021-11-06] MEDS: PANTOPRAZOLE 40 MG VIAL IV SCH ×2 (12:14→21:12)
[2021-11-06] MEDS: FUROSEMIDE 40 MG/4 ML VIAL IV SCH (12:16)
[2021-11-06] MEDS: cefTRIAXone 1,000 MG in SODIUM CHLORIDE 0.9% 100 ML IV SCH (12:20)
[2021-11-06] MEDS: FERRIC GLUCONATE COMPLEX 125 MG in SODIUM CHLORIDE 0.9% 100 ML IV SCH (12:48)
[2021-11-07] MEDS: HYDROmorphone 1 MG/1 ML SYRINGE IV PRN ×2 (06:09→10:41)
[2021-11-07 06:50] LABS: Basophils # 0.1 10*3/uL (0.0-0.2); Basophils % 0.6 % (0.0-0.8); Eosinophils # 0.8 10*3/uL (0.0-0.87); Eosinophils % 6.5 % (0.00-10.9); Hematocrit 31.2 VOL% (35.7-47.0); Hemoglobin 9.1 GM/DL (12.0-16.0); Immature Granulocytes % 0.6 %; Immature Granulocytes Absolute 0.08 #; Lymphocytes # 1.8 10*3/uL (1.4-4.0); Lymphocytes % 14.1 % (21.3-54.2); Mean Corpuscular HGB Conc 29.2 GM/DL (32-36); Mean Corpuscular Volume 66.4 FL (87-102); Mean Platelet Volume 9.6 FL (9.6-12.0); Monocytes # 0.7 10*3/uL (0.11-0.8); Monocytes % 5.8 % (1.7-12.7); Neutrophils % 72.4 % (38.7-73.9); Platelet Count 492 T/CUMM (130-400); Red Cell Distribution Width 24.3 % (9.3-17.3); White Blood Count 12.4 T/CUMM (4-12)
[2021-11-07 07:06] LABS: Calcium 8.8 MG/DL (8.5-10.1); Osmolality,Calculated 272.7 MOS/KG (273-304); Potassium 3.2 MMOL/L (3.5-5.1)
[2021-11-07 07:12] LABS: Hypochromia 1+; Platelet Estimate Increased
[2021-11-07 07:13] LABS: Microcytosis 3+; Target Cells Few
[2021-11-07] MEDS ORDERED: POTASSIUM BICARB EFFERVESCENT 20 MEQ TAB.EFF PO ONE (09:05)
[2021-11-07] MEDS: PANTOPRAZOLE 40 MG VIAL IV SCH (09:25)
[2021-11-07] MEDS: SACUBITRIL/VALSARTAN 49-51 MG TABLET PO SCH (09:26)
[2021-11-07] MEDS: METOPROLOL SUCCINATE XL 50 MG TABLET PO SCH (09:26)
[2021-11-07] MEDS: FUROSEMIDE 40 MG/4 ML VIAL IV SCH (09:26)
[2021-11-07] MEDS: cefTRIAXone 1,000 MG in SODIUM CHLORIDE 0.9% 100 ML IV SCH (09:27)
[2021-11-07] MEDS: FERRIC GLUCONATE COMPLEX 125 MG in SODIUM CHLORIDE 0.9% 100 ML IV SCH (10:25)
[2021-11-07 11:43] VITALS: BP 138/78
[2021-11-10] MEDS ORDERED: BISACODYL 5 MG TABLET PO ONE (12:00)
[2021-11-10] MEDS ORDERED: POLYETHYLENE GLYCOL POWDER 255 GM BOTTLE PO ONE (18:00)
== END 2021-11-07 14:05 | disposition home or self-care (01) | DRG 663 ==
LOC: N.ED 14:28 → N.EDINP 20:55 → N.3E 23:00
PROVIDERS: ADMIT Internal Medicine; ATTEND Internal Medicine